=== PATIENT | female | born 1980 | race Caucasian/White ===

== ENCOUNTER 2020-02-27 21:22 | Emergency (ER) | payer OTHER ==
[~2020-02-27] VITALS: Ht 162.6 cm; Wt 50.0 kg
[2020-02-27 23:43] VITALS: BP 127/83
== END 2020-02-28 01:16 | disposition home or self-care (01) ==
LOC: EMS 21:22
DX: Z71.1 Person with feared health complaint in whom no diagnosis is made (principal); Z77.21 Contact with and (suspected) exposure to potentially hazardous body fluids
CPT/HCPCS: 80074; 84460